=== PATIENT | male | born 1960 | race African-American/Black ===

== ENCOUNTER 2016-05-30 07:00 | Inpatient (IN) ==
[2016-05-29 09:56] LABS: Basophils # 0.1 10*3/uL (0.0-0.2); Basophils % 0.6 % (0.0-0.8); Eosinophils # 0.1 10*3/uL (0.0-0.87); Eosinophils % 1.5 % (0.00-10.9); Hematocrit 35.4 VOL% (42.0-52.0); Hemoglobin 11.9 GM/DL (14.0-18.0); Immature Granulocytes % 0.2 %; Immature Granulocytes Absolute 0.02 #; Lymphocytes # 2.7 10*3/uL (1.4-4.0); Lymphocytes % 30.3 % (21.2-54.2); Mean Corpuscular HGB Conc 33.6 GM/DL (32-36); Mean Corpuscular Hemoglobin 31 PG (27-34); Mean Corpuscular Volume 91.2 FL (87-102); Mean Platelet Volume 9.2 FL (9.6-12.0); Monocytes # 0.7 10*3/uL (0.11-0.8); Monocytes % 8.3 % (1.7-12.7); Neutrophils # 5.2 10*3/uL (1.4-7.4); Neutrophils % 59.1 % (38.7-73.9); Platelet Count 244 10*3/uL (130-400); Red Blood Count 3.88 10*6/uL (3.8-5.5); Red Cell Distribution Width 12.9 % (9.3-17.3); White Blood Count 8.8 10*3/uL (4.5-13.71)
[2016-05-29 10:13] LABS: PT Patient Result 10.7 SECS
[2016-05-29 10:30] LABS: Albumin 3.2 G/DL (3.4-5.0); Bilirubin,Total 0.4 MG/DL (0.2-1.0); Calcium 9.2 MG/DL (8.5-10.1); Osmolality,Calculated 284.1 MOS/KG (273-304); Potassium 4.5 MMOL/L (3.5-5.1); Total Protein 7.3 G/DL (6.4-8.3)
--- NOTE | 2016-05-29 10:37 | EKG Report ---
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
--- NOTE | 2016-05-29 11:08 | XRay Report ---
Chest, 2 views History is preop respiratory screening The heart is normal in size. The lungs are clear. Impression: No acute pathology seen. PROCEDURE INTERPRETED AT [facility] DEPARTMENT OF RADIOLOGY Final Report Signed by: Dr. Talisha Maddox
--- NOTE | 2016-06-06 07:57 | IR History and Physical Update ---
IR Pre-Procedure - History and Physical H&P was reviewed, the patient examined and there: are no changes in the patients condition since last H&P was completed. Reason for procedure:: 55-year-old male with refractory ascites, requiring paracentesis every month or so. We have met several times regarding benefit of TIPS procedure. He presents today for TIPS. History and Physical Changes: None. No recent episodes of hepatic encephalopathy, GI bleed. Recannulation of ascites noted. The - Physical Exam Vital Signs: Last Vital Signs Temp 99.1 F 06/06/16 07:28 Pulse 66 06/06/16 07:28 Resp 18 06/06/16 07:28 BP 112/73 06/06/16 07:28 Pulse Ox 100 06/06/16 07:28 Mental Status: alert and oriented Heart: regular rate and rhythm Lung: clear to auscultation Abdomen: other (distended but not tense. Fluid wave. Normal active bowel sounds.) Extremity: Inspection and palpation of digits and nails shows no apparent masses , lesions,foreign bodies, no evidence of clubbing, cyanosis, petechiae, infections, nodes or other abnormalities., other Extremity: Present: capillary refill less than 3 seconds - Sedation IR anesthesia plan for sedation: anesthesia consulted ASA Class: III - Risks Risks: Procedures explained. Risks discussed include, but not limited to, the following:[ Bleeding, , hepatic encephalopathy requiring revision of TIPS. ] All questions answered. The following alternatives were discussed:[ Continued paracentesis] Risks and benefits discussed with: patient Consent obtained from: patient Assessment and Plan - Time spent with patient Time spent with patient: Less than 30 minutes (1) Liver failure Status: Chronic Assessment and plan: Assessment: End stage liver disease with refractory ascites. No recent history of GI bleed or hepatic encephalopathy. Plan: TIPS procedure today with general anesthesia. Again, risks, benefits and alternatives were discussed with the patient and he is eager to proceed. Current Visit: Yes Qualifiers: Liver failure chronicity: chronic
[2016-06-06] MEDS ORDERED: LEVOFLOXACIN INJ 500 MG in PREMIX 1 EACH IV ONE (07:58)
[2016-06-06] MEDS ORDERED: LEVOFLOXACIN INJ 100 ML IV ONE (08:44)
[2016-06-06] MEDS: SODIUM CHLORIDE 0.45% 1,000 ML IV SCH (08:50)
[2016-06-06] MEDS ORDERED: LIDOCAINE 1% 5 ML VIAL ONE (09:35)
[2016-06-06] MEDS ORDERED: HEPARIN 1,000 UNIT/1 ML VIAL ONE (09:35)
[2016-06-06] MEDS ORDERED: GLYCOPYRROLATE 0.4 MG/2 ML VIAL ONE (09:35)
[2016-06-06] MEDS ORDERED: PROPOFOL 200 MG/20 ML VIAL IV ONE (09:35)
[2016-06-06] MEDS ORDERED: PHENYLEPHRINE 1 MG/10 ML SYRINGE IV ONE (09:35)
[2016-06-06] MEDS ORDERED: ROCURONIUM 100 MG/10 ML VIAL IV ONE (09:35)
[2016-06-06] MEDS ORDERED: NEOSTIGMINE 10 MG/10 ML VIAL ONE (09:35)
[2016-06-06] MEDS ORDERED: ONDANSETRON 4 MG/2 ML VIAL ONE (09:35)
--- NOTE | 2016-06-06 12:13 | Post Interventional Procedure ---
Pre-op diagnosis: Refractory ascites Post-op diagnosis: same (s/p TIPS) Procedure: TIPS, paracentesis Contrast: Omni 350, 80cc Flouroscopy: 24.6 min Radiologist: Sidney Anaya Anesthesia: GETA Specimens: none sent Estimated blood loss: minimal (<200 cc) Complications: none Condition: stable Description/Findings: TIPS placed w/o difficulty Post-TIPS pressures: PV 12/8 - 9; RA 16/10 - 13; Gradient of 4 mmHg Paracentesis 4100 cc Grafts or Implants: ViaTorr stent graft 10 x 70 mm, Fluency Plus stent graft 10 x 60 mm Assessment and Plan - Time spent with patient Time spent with patient: Greater than 30 minutes (1) Liver failure Status: Chronic Assessment and plan: Assessment: End stage liver disease with refractory ascites. No recent history of GI bleed or hepatic encephalopathy. Plan: TIPS procedure today with general anesthesia. Again, risks, benefits and alternatives were discussed with the patient and he is eager to proceed. June 06, 2016 1215: S/p TIPS, transfer to ICU overnight. Dr. Elayne Bazzi attending. If stable anticipate OK to discharge in 1-2 days. Current Visit: Yes Qualifiers: Liver failure chronicity: chronic
[2016-06-06] MEDS ORDERED: SODIUM CHLORIDE 0.9% 1,000 ML IV SCH (13:00)
[2016-06-06] MEDS ORDERED: MIDAZOLAM 2 MG/2 ML VIAL ONE (13:07)
[2016-06-06] MEDS ORDERED: ePHEDrine 50 MG/ML AMP ONE (13:07)
[2016-06-06] MEDS ORDERED: SEVOFLURANE 1 UNIT/15 MINUTE INH ONE (13:07)
[2016-06-06] MEDS ORDERED: fentaNYL 100 MCG/2 ML VIAL ONE (13:07)
[2016-06-06] MEDS ORDERED: SODIUM CHLORIDE 0.9% 1,000 ML IV ONE (13:08)
--- NOTE | 2016-06-06 14:17 | Gastrointestinal H&P ---
Assessment and Plan (1) Cirrhosis of liver Status: Acute Assessment and plan: Patient with cirrhosis of the liver complicated by intractable ascites now status post TIPS for control of his ascites. Will observe him overnight and he has no significant post hips related complications he can be discharged tomorrow. We have again encouraged him to avoid alcohol and limit his salt intake. He will resume his normal follow-up with Dr. Bazzi who is out of town today. Current Visit: Yes History of Present Illness Chief complaint: Intractable ascites History of present illness: Mr. Canada is a 55 year old male With history of cirrhosis and intractable ascites now status post TIPS placement. He reports no GI bleeding he has had no significant history of encephalopathy. Patient is routinely followed by Dr. Bazzi he is out of town today. He is undergone successful TIPS placement is admitted now for observation for any potential complications. He has had no difficulty with bleeding and no nausea vomiting reported. Home Medications Medication Instructions Recorded Confirmed Type Furosemide Tab [Lasix Tab] 40 mg PO DAILY 02/02/15 06/06/16 History Spironolactone [Aldactone] 100 mg PO DAILY 02/02/15 06/06/16 History Multivitamin [One Daily] 1 each PO DAILY 05/30/16 06/06/16 History Allergies Allergy/AdvReac Type Severity Reaction Status Date / Time No Known Allergies Allergy Verified 06/06/16 07:26 Medical,Surgical,& Family Hx - Medical History Cardio: History of: Hypertension Psychological: History of: Anxiety Disorders Neurology: No history of: Seizures Rheumatology: History of;: Gout Gastrointestinal: History of: Liver Problems (cirrhosis), GI Problems (ascites) Musculoskeletal: No history of: Amputation Hematology: History of: Anemia No history of: Blood Transfusion Reaction Other: History of: Miscellaneous Medical Problems (FLUID TIPS) No history of: Anesthesia Reactions, Cancer - Surgical History Cardiac Surgeries: Patient Denies: Cardiac Catheterization HEENT Surgeries: Patient denies: Eye Surgery, Tonsilectomy & Adenoidectomy Abdominal Surgeries: Surgical HX of: Hernia Repair Patient denies: Abdominal Surgery, Colonoscopy, EGD Reproductive Surgeries: Patient denies;: Genitourinary Surgery Orthopedic Surgeries: Patient denies;: Orthopedic Surgery - Family History Family History: Reports;: Family Cancer (Brother (throat)), Family Diabetes ( Brother) Denies;: Family Heart Disease, Family Hypertension, Family Stroke - Social History Smoking Status: Never smoker Frequency of Alcohol Use: None Type of Drug Use: None - Constitutional Constitutional: Absent: anorexia, chills, fever(s) - EENT Ears: Absent: decreased hearing Nose, mouth and throat: Absent: dysphagia, epistaxis, sore throat - Cardiovascular Cardiovascular: Absent: chest pain at rest, chest pain with activity - Respiratory Respiratory: Absent: dyspnea, dyspnea on exertion - Gastrointestinal Gastrointestinal: Absent: abdominal pain, bloating, hematemesis, melena - Neurological Neurological: Absent: abnormal gait, abnormal speech - Hematologic/Lymphatic Hematologic/Lymphatic: Absent: easy bleeding, easy bruising Exam - Constitutional Vitals: Period Temp Pulse Resp BP Sys/Kern Pulse Ox Last 24 Hr 97.3 F-99.3 F 66-114 16-20 109-137/68-91 100-100 General appearance: normal weight, no acute distress - Head Head exam: Present: normal inspection, normocephalic, atraumatic - Eye Eye exam: Present: EOMI. Absent: conjunctival injection Pupils: Present: ARTUR. Absent: dilated - ENT ENT exam: Present: normal oropharynx - Neck Neck exam: Absent: lymphadenopathy, thyromegaly - Respiratory Respiratory exam: Present: clear to auscultation bilaterally. Absent: accessory muscle use, rales - Cardiovascular Cardiovascular exam: Present: regular rate and rhythm. Absent: systolic murmur - GI/Abdominal GI/Abdominal exam: Present: normal bowel sounds, soft. Absent: tenderness - Extremities Exam Extremities exam: Absent: edema Results - Labs CBC & BMP: 05/29/16 09:50 05/29/16 09:50
--- NOTE | 2016-06-06 14:57 | Anesthesia ---
Anesthesia Post OP - Post Ansesthetic Evaluation Patient seen in post op: Yes Resp: within normal limits CV: within normal limits Mental: within normal limits Temp: within normal limits [id number]: within normal limits Nausea and Vomiting: within normal limits Pain: within normal limits
--- NOTE | 2016-06-06 15:50 | Event Note ---
Pt seen in ICU. Awake and alert. Resting comfortably, but c/o need to urinate. Denies abdominal pain. No asterixis, abdomen soft and NTTP. Anticipate transfer to floor first thing tomorrow morning after sheath is removed, and home soon after.
--- NOTE | 2016-06-06 17:49 | Ultrasound Report ---
IR tips w hemodynamics, US paracentesis abd w/image Indication: Refractory ascites. End-stage liver disease. Procedures: 1. Ultrasound-guided paracentesis 2. Transjugular intrahepatic portosystemic shunt Description: A formal timeout performed. Patient was placed under general endotracheal anesthesia. Sonographic evaluation of the abdomen shows significant ascites. Left lower quadrant was prepped and draped in a sterile fashion. Maximum sterile barrier technique was instituted. Using trocar technique and sonographic guidance, an 8 Somali drainage catheter was advanced into the left lower quadrant ascites. Captured sonographic image documents needle position. Trocar was removed and 4100 cc of straw-colored ascites was withdrawn and discarded. The tube was removed and a bandage placed at the puncture site. The right neck was then prepped and draped in sterile fashion. Sonographic evaluation of the internal jugular vein shows the patent and compressible. It was accessed with micropuncture needle using sonographic guidance. Captured sonographic image documents needle position. Needle was exchanged over wire for a MPA catheter which was advanced into the IVC. Catheter was withdrawn and a right hepatic vein engaged. The wire was advanced into the right hepatic vein and a venogram performed confirming positioning and showing no evidence of Budd-Chiari. Over wire, the MPA catheter was removed and a TIPS sheath advanced into the right hepatic vein. A Declan catheter was advanced over the wire into the right hepatic vein. Wire was removed. The Declan balloon was inflated and a carbon dioxide portal venogram was attempted. However, a hepatic vein to hepatic vein collateral was identified and adequate pressure could not be obtained to push carbon dioxide trans-sinusoidal into the portal vein. Therefore, carbon dioxide portal venogram was unsuccessful. Over wire, the Declan balloon was removed. A Rosch-Uchida needle was advanced through the sheath into the right hepatic vein. After 4 passes with the needle directed inferiorly, during withdrawal, there was blood return in the needle hub. Contrast injection showed access into a superior division of the first order branch off the undivided right portal vein. With minimal difficulty, the Glidewire was advanced into the main portal vein. The Rosch-Uchida needle was then removed and a Tegtmeyer catheter advanced into the main portal vein. Position was confirmed with a portal venogram. The Tegtmeyer catheter was then exchanged for a measuring pigtail catheter. With the TIPS sheath in the right hepatic vein, and the pigtail catheter in the main portal vein, a combined venogram was then performed and measurements of necessary stent graft length obtained, 9 cm. Additionally, small amount of thrombus was demonstrated in the hepatic vein outflow tract, and heparin 5000 units was given IV. The pigtail catheter was removed over an Amplatz wire and the large caliber TIPS sheath stylette advanced. Efforts to bluntly advanced the sheath through liver parenchyma were unsuccessful. With slight difficulty, an 8mm Conquest balloon was advanced across the hepatic parenchymal tract and inflated, free dilating the tract. During deflation, the TIPS sheath was advanced over the balloon, across the parenchymal tract, for improved hemostasis. A 10 mm x 7+2 cm Viatorr stent graft was advanced. The bare-metal component was exposed in the main portal vein and withdrawn until meeting resistance at the portal venotomy site. The stent graft was then deployed across the peripheral tract and anchored with a 8mm balloon. A post deployment venogram was then performed showing excellent flow through the newly created TIPSS. The central most portion of the stent graft does not extend adequately towards the IVC-RA junction. Therefore, a second stent graft, this one a Fluency Plus 10 mm x 60 mm device, was advanced and deployed extending the TIPS further centrally towards the IVC-RA junction with satisfactory results. This was anchored with 8mm angioplasty. A small kink in the TIPS stent near the portal vein inflow side was treated with 9 mm angioplasty with satisfactory results. Pigtail catheter was then advanced in the main portal vein and venogram performed showing excellent flow through the newly created shunt and no evidence of residual thrombus in the hepatic vein. No retrograde portal vein flow identified. Pressure measurements were then obtained and are as follows: Main portal vein 12/8, mean of 9 mmHg; right atrium 16/10, mean of 13 mmHg; pressure gradient 4 mmHg. This represents a excellent result and further intervention was not necessary. ACT was checked, 194 seconds. The deployment sheath was then removed over wire and a 9 Somali vascular sheath advanced into the right IJ access site. The wire was removed. The sheath was anchored with 3-0 Prolene and a sterile dressing applied. It was placed on one half normal saline TKO. Patient was then awakened from general anesthesia and transferred to the ICU in stable condition. He tolerated the procedure well. Contrast: Omnipaque 350, 80 cc. Fluoroscopy: 24.6 minutes. Medications: General endotracheal anesthesia. Heparin 5000 units. Impression: 1. Uncomplicated paracentesis, 4100 cc. 2. Successful TIPS, with a post TIPS pressure gradient of 4 mmHg. PROCEDURE INTERPRETED AT [facility] DEPARTMENT OF RADIOLOGY Final Report Signed by: Sidney Anaya M.D.
[2016-06-07 05:14] LABS: Basophils # 0.1 10*3/uL (0.0-0.2); Basophils % 0.6 % (0.0-0.8); Eosinophils % 0.2 % (0.00-10.9); Hemoglobin 11.6 GM/DL (14.0-18.0); Immature Granulocytes % 0.4 %; Immature Granulocytes Absolute 0.05 #; Lymphocytes # 1.8 10*3/uL (1.4-4.0); Lymphocytes % 14.7 % (21.2-54.2); Mean Corpuscular HGB Conc 34.1 GM/DL (32-36); Mean Corpuscular Hemoglobin 30 PG (27-34); Mean Platelet Volume 9.6 FL (9.6-12.0); Monocytes # 1.2 10*3/uL (0.11-0.8); Monocytes % 9.5 % (1.7-12.7); Neutrophils # 9.3 10*3/uL (1.4-7.4); Neutrophils % 74.6 % (38.7-73.9); Platelet Count 215 T/CUMM (130-400); Red Blood Count 3.82 MC/CUMM (3.8-5.5); Red Cell Distribution Width 12.7 % (9.3-17.3); White Blood Count 12.5 T/CUMM (4-12)
--- NOTE | 2016-06-07 08:00 | Gastrointestinal Progress Note ---
Assessment and Plan - Time spent with patient Time spent with patient: Greater than 30 minutes (1) Cirrhosis of liver Status: Acute Current Visit: Yes (2) S/P TIPS (transjugular intrahepatic portosystemic shunt) Status: Acute Current Visit: Yes (3) Other specified counseling Status: Acute Current Visit: Yes Exam (Progress Note) - Constitutional Vitals: Period Temp Pulse Resp BP Sys/Kern Pulse Ox Last 24 Hr 97.3 F-100.4 F 63-114 12-21 100-144/62-95 99-100 Results - Labs CBC & BMP: 06/07/16 04:25 05/29/16 09:50 Note Addendum: PLEASE NOTE -- automatic citation of patient information is unavoidable in this electronic note. I have made a reasonable effort to review the information cited , but it is not a part of my evaluation, impression, or recommendation unless specifically discussed in the dictated text that follows. As well, voice recognition software was used in the creation of this clinical note. Reasonable effort was made to identify and correct gross errors. Despite proofreading, errors in automobile damage appraiser may be present, including nonsense verbiage at times. If you encounter such an error, please contact me at for discussion and correction. -- Rodriguez Chief complaint: cirrhosis status post TIPS placement Subjective: the patient is a 55-year-old male seen for follow-up of cirrhosis. He underwent TIPS placement yesterday with interventional radiology, Dr. Anaya. He reports feeling well this morning and would like to eat. He has had no evidence of post procedural complications. He has been seen by Dr. Anaya this morning who is comfortable transferring him to the floor for potential discharge in the next 24 hours. Medications: normal saline infusion Review of Symptoms: 12 point review of symptoms was negative except as noted above Physical examination: Vital Signs: Current vital signs reviewed. General Appearance: well-appearing. Not acutely ill. Head: Normocephalic. Eyes: no scleral icterus. No scleral injection. No conjunctival pallor. Oral Cavity: Odor of breath was normal. No drooling was observed. Lips showed no abnormalities. Lungs: Respiration rhythm and depth was normal. Cardiovascular: Heart rate and rhythm were normal. Abdomen: abdomen was not distended. Abdominal auscultation revealed no abnormalities. Ascites was not discovered. Abdominal palpation revealed no tenderness and no hepatosplenomegaly. Musculoskeletal System: musculoskeletal system was grossly normal. Neurological: level of consciousness was normal. Speech was normal. No coordination/cerebellum abnormalities were noted. Skin: Gen. appearance was normal. Color and pigmentation were normal. No skin lesions were appreciated. Laboratory: white blood count 12.5, hemoglobin 11.6, hematocrit 34.0, platelets 215, INR 1.0, PT 10.7, ALT 25, AST 24, alkaline phosphatase 126, total bilirubin 0.4, albumin 3.2, sodium 142, potassium 4.5, BUN 18, creatinine 1.0 Radiology: intra-procedural ultrasound demonstrated significant ascites which was drained and documents successful placement of a TIPS Impressions: 1. Cirrhosis with intractable ascites -- the patient has undergone a successful placement of a TIPS device. He had an uneventful evening and has demonstrated no evidence of complication. He is comfortable this morning. He will transfer to the [facility] today and likely discharge tomorrow. 2. Patient Counseling: Medical Management: Patient seen for greater than 30 minutes. Greater than 50% of this time was spent counseling regarding differential diagnosis, likely diagnosis,, diagnostic and therapeutic options, risks, benefits, and alternatives to procedures and medications, informed consent, and plan of care generally. Patient has expressed understanding and wishes to proceed. Recommendations: -- continue pre-procedural cirrhosis care per Dr. Bazzi's management -- transfer to the floor today -- likely discharge tomorrow -- alcohol abstinence -- continue home medications -- return to the emergency department with any concerns
--- NOTE | 2016-06-07 08:26 | Progress Note ---
Assessment and Plan - Time spent with patient Time spent with patient: Less than 30 minutes (1) Liver failure Status: Chronic Assessment and plan: Assessment: End stage liver disease with refractory ascites. No recent history of GI bleed or hepatic encephalopathy. Plan: TIPS procedure today with general anesthesia. Again, risks, benefits and alternatives were discussed with the patient and he is eager to proceed. June 06, 2016 1215: S/p TIPS, transfer to ICU overnight. Dr. Elayne Bazzi attending. If stable anticipate OK to discharge in 1-2 days. June 07, 2016: Postop day 1 status post TIPS. Doing well. Removed right IJ sheath. OK to transfer to floor status. Anticipate discharge within the next 24 hours. Follow-up Dr. Anaya in 3-4 weeks. Current Visit: Yes Qualifiers: Liver failure chronicity: chronic Family Medicine PN Sub Interval history: No adverse events overnight. Patient resting comfortably, eating breakfast. Able to urinate. Denies abdominal pain. Exam (Progress Note) - Constitutional Vitals: Period Temp Pulse Resp BP Sys/Kern Pulse Ox Last 24 Hr 97.3 F-100.4 F 63-114 12-21 100-144/62-95 99-100 General appearance: normal weight - Head Head exam: Present: normal inspection - GI/Abdominal GI/Abdominal exam: Present: normal bowel sounds, soft - Neurological Exam Neurological exam: Present: other (no asterixis) - Psychiatric Psychiatric exam: Present: normal affect, normal mood Results - Labs CBC & BMP: 06/07/16 04:25 05/29/16 09:50
[2016-06-07] MEDS: SODIUM CHLORIDE 0.45% 1,000 ML IV SCH (10:18)
[2016-06-08 05:42] LABS: INR 1.2; PT Patient Result 12.4 SECS
[2016-06-08 06:00] LABS: Albumin 2.6 G/DL (3.4-5.0); Calcium 8.4 MG/DL (8.5-10.1); Osmolality,Calculated 278.3 MOS/KG (273-304); Potassium 3.7 MMOL/L (3.5-5.1); Total Protein 6.2 G/DL (6.4-8.3)
[2016-06-08 06:01] LABS: Basophils # 0.1 10*3/uL (0.0-0.2); Basophils % 0.5 % (0.0-0.8); Eosinophils # 0.2 10*3/uL (0.0-0.87); Eosinophils % 1.7 % (0.00-10.9); Hematocrit 31.4 VOL% (42.0-52.0); Hemoglobin 10.6 GM/DL (14.0-18.0); Immature Granulocytes % 0.4 %; Immature Granulocytes Absolute 0.04 #; Lymphocytes # 2.3 10*3/uL (1.4-4.0); Lymphocytes % 21.7 % (21.2-54.2); Mean Corpuscular HGB Conc 33.8 GM/DL (32-36); Mean Corpuscular Hemoglobin 30 PG (27-34); Mean Platelet Volume 9.4 FL (9.6-12.0); Monocytes # 1.7 10*3/uL (0.11-0.8); Monocytes % 15.8 % (1.7-12.7); Neutrophils # 6.3 10*3/uL (1.4-7.4); Neutrophils % 59.9 % (38.7-73.9); Platelet Count 185 T/CUMM (130-400); Red Blood Count 3.53 MC/CUMM (3.8-5.5); Red Cell Distribution Width 12.8 % (9.3-17.3); White Blood Count 10.5 T/CUMM (4-12)
[2016-06-08 06:23] LABS: Eosinophils 2 % (0-10); Lymphocytes 24 % (20-55); Platelet Estimate Normal; Segmented Neutrophils 62 % (50-85); Total Cells Counted 100
[2016-06-08 06:24] LABS: Hypochromasia 1+; Ovalocytes Slight
[2016-06-08] MEDS: SODIUM CHLORIDE 0.45% 1,000 ML IV SCH (08:39)
--- NOTE | 2016-06-08 08:45 | Discharge Summary ---
Hospital Course - Time spent with patient Time with patient DS: Greater than 30 minutes Diagnosis - Discharge Diagnosis (1) Cirrhosis of liver Status: Chronic (2) S/P TIPS (transjugular intrahepatic portosystemic shunt) Status: Acute (3) Other specified counseling Status: Acute Specialty Discharge - Follow Up or Referrals Follow up with: Sidney Anaya MD [Physician] - (3 weeks in clinic ) Discharge Plan - Discharge Data Disposition: Disch To Home/Self Care Condition at Discharge: Stable Discharge Diet: low salt diet Activity: resume usual activities as tolerated Hygiene: no restrictions Weight Bearing at Discharge: full weight bearing Contact your physician if you experience:: fever over 101, Difficulty voiding, Redness or swelling, Nausea/Vomiting, Shortness of breath, Bleeding - Discharge Medications New Multivitamin (Centrum) [Centrum Tab] 1 tablet PO DAILY tablet Discontinued Spironolactone [Aldactone] 100 mg PO DAILY Furosemide Tab [Lasix Tab] 40 mg PO DAILY Multivitamin [One Daily] 1 each PO DAILY - Follow Up or Referral Follow Up: Sidney Anaya MD [Physician] - (3 weeks in clinic ) Steven Bazzi MD [Physician] - - Forms/Instructions Instructions: Liver Disease Diet (DC), Transjugular Intrahepatic Portosystemic Shunt (DC) Exam - Constitutional Vitals: Period Temp Pulse Resp BP Sys/Kern Pulse Ox Last 24 Hr 97.4 F-100.5 F 72-87 16-20 98-146/65-78 98-100 Discharge Results Procedures and tests throughout hospitalization: Pending Orders 06/06/16 13:20 MRSA Surveillence, Inf Control Routine Labs on day of discharge: Labs from last 24 hours 06/08/16 06/08/16 06/08/16 05:14 05:14 05:14 WBC 10.5 RBC 3.53 L Hgb 10.6 L Hct 31.4 L MCV 89.0 MCH 30 MCHC 33.8 RDW 12.8 Plt Count 185 MPV 9.4 L Neut % (Auto) 59.9 Lymph % (Auto) 21.7 Ritchie % (Auto) 15.8 H Eos % (Auto) 1.7 Baso % (Auto) 0.5 Neut # (Auto) 6.3 Lymph # (Auto) 2.3 Ritchie # (Auto) 1.7 H Eos # (Auto) 0.2 Baso # (Auto) 0.1 Total Counted 100 Immature Gran % 0.4 Nucleated RBC % 0.0 Immature Gran # 0.04 Segmented Neutrophils 62 Lymphocytes 24 Monocytes 12 Eosinophils 2 Nucleated RBCs # 0.00 Platelet Estimate Normal Hypochromasia 1+ Ovalocytes Slight INR 1.2 PT Patient/Control Mix 12.4 Sodium 141 Potassium 3.7 Chloride 107 Carbon Dioxide 24 Anion Gap 13.7 BUN 8 Creatinine 0.80 GFR Calculation 126 BUN/Creatinine Ratio 10.00 Glucose 92 Calculated Osmolality 278.3 Calcium 8.4 L Total Bilirubin 1.00 AST 80 H ALT 77 H Alkaline Phosphatase 173 H Total Protein 6.2 L Albumin 2.6 L Globulin 3.6 H Albumin/Globulin Ratio 0.7 L DS: Provider Date of admission: 06/06/16 12:07 Primary care physician: . No PCP Attending physician on admission: Steven Scott Consults: Interventional radiology, Dr. Anaya Discharging clinician: Maurice Frias MD Note Addendum: DATE OF ADMISSION: June 06, 2016 DATE OF DISCHARGE: June 08, 2016 DISCHARGE DIAGNOSES: -- cirrhosis of the liver with intractable ascites -- status post transjugular intrahepatic portosystemic shunt (TIPS) placement CONSULTANTS: Dr. Sidney Anaya, interventional radiology PROCEDURES: transjugular intrahepatic portosystemic shunt (TIPS) BRIEF HISTORY: The patient is a 55-year-old male admitted with a primary diagnosis of intractable ascites in the setting of alcoholic cirrhosis. The patient was admitted for control of the ascites and performance of a TIPS procedure. He was without other acute complaints at the time of admission. DIAGNOSTIC STUDIES: -- imaging studies were accomplished during the course of the TIPS placement and were normal -- laboratory studies were monitored during the admission and were baseline for this patient not requiring direct intervention HOSPITAL COURSE: The patient was admitted on June 06 and underwent TIPS procedure on that day. He was admitted to the ICU after the procedure for close observation and had a nominal post procedure course. He was transferred to the medicine floor on postoperative day one hand continued to do well. At the time of discharge, he was taking a diet, moving his bowels, producing adequate urine, and was comfortable in general. He was given discharge instructions as well as alarm features to monitor for urgent return to the emergency department. He expressed understanding and a willingness to comply. DISCHARGE DISPOSITION: discharged to home with follow-up as noted below. ACTIVITY: ad aris. DIET: low-sodium MEDICATIONS: per discharge reconciliation FOLLOWUP: -- Follow-up with your primary residential builder, Dr. Bazzi, at the next available appointment -- Go to the emergency department with any new symptoms or concerns related to your cirrhosis or recent procedure
[2016-06-08] MEDS ORDERED: MULTIVITAMIN (CENTRUM) TABLET PO SCH (09:00)
[2016-06-08 14:03] VITALS: BP 99/52
== END 2016-06-08 13:30 | disposition home or self-care (01) | DRG 407 ==
LOC: EDSTATUS 06-06 06:30 → N.RAD 06-06 06:34 → N.SDSINP 06-06 06:34 → N.ICU 06-06 10:31 → N.5E 06-07 14:56
PROVIDERS: ADMIT Internal Medicine Gastroenterology; ATTEND Internal Medicine Gastroenterology
PROC: IRTIPSW (2016-06-06 09:00)